=== PATIENT | female | born 1970 | race Hispanic/Latino ===

== ENCOUNTER 2020-08-19 07:49 | Emergency (ER) | payer SELFPAY ==
[2020-08-19] MEDS ORDERED: SODIUM CHLORIDE 0.9% 1000 ML 1,000 ML IV ONE (08:12)
[2020-08-19] MEDS ORDERED: diphenhydrAMINE 50 MG/ML VIAL IV ONE (08:12)
[2020-08-19] MEDS ORDERED: FAMOTIDINE 20 MG/2 ML INJ IV ONE (08:12)
[2020-08-19 10:09] LABS: Hematocrit 43.1 % (30.3-42.9); Hemoglobin 14.2 gm/dl (10.1-14.3); Mean Corpuscular HGB Conc 33 % (30-34); Mean Corpuscular Volume 92 fl (79-97); Platelet Count 370 K/mm3 (140-440); Red Blood Count 4.71 M/mm3 (3.65-5.03); Red Cell Distribution Width 13.5 % (13.2-15.2)
[2020-08-19 10:12] LABS: INR 1.07 (0.87-1.13)
[2020-08-19 10:13] LABS: Partial Thromboplastin Time 26.4 Sec. (24.2-36.6)
--- NOTE | 2020-08-19 10:16 | XRay Report ---
CHEST 1 VIEW 08/19/2020 9:10 AM INDICATION / CLINICAL INFORMATION: Dyspnea. COMPARISON: None available. FINDINGS: SUPPORT DEVICES: None. HEART / MEDIASTINUM: The heart size and pulmonary vasculature are normal. LUNGS / PLEURA: No significant pulmonary or pleural abnormality. No pneumothorax. ADDITIONAL FINDINGS: No significant additional findings. IMPRESSION: No acute findings. Signer Name: Jere Johns MD Signed: 08/19/2020 10:12 AM Workstation Name: [id number]
[2020-08-19 10:25] LABS: Creatine Kinase MB 1.3 ng/mL (0.0-4.0)
[2020-08-19 10:26] LABS: BUN/Creatinine Ratio 11; Blood Urea Nitrogen 11 mg/dL (7-17); Calcium 8.5 mg/dL (8.4-10.2); Hemolysis Index 14
[2020-08-19 10:28] LABS: Alanine Aminotransferase 28 units/L (7-56); Albumin 3.4 g/dL (3.9-5)
[2020-08-19 10:32] LABS: Bilirubin,Direct < 0.2 mg/dL (0-0.2)
--- NOTE | 2020-08-19 11:47 | Emergency Department Report ---
ED General Adult HPI - General Chief complaint: Allergic Reaction Stated complaint: ALLERGIC REACTION/SICK Time Seen by Provider: 08/19/20 08:04 Source: patient, EMS Mode of arrival: Stretcher Limitations: No Limitations - History of Present Illness Initial comments: This is a 49-year-old female that was placed on Levaquin for presumptive diagnosis of bronchitis by a local primary care physician. She states that she had just taken her last dose of a week course prior to this event. The patient got very weak. EMS arrived at the scene and found the patient's blood pressure to be in the 80s. They gave her subcu epinephrine. Patient did not describe acute shortness of breath to me. She did not develop hives. However, on arrival she did have erythroderma. She did associated her problem with the Levaquin that she had taken this morning. Patient denies recent travel, leg pain, chest pain. She has had a nonproductive cough. She does not think she has had fever or chills. Severity scale (0 -10): 0 - Related Data Allergies Allergy/AdvReac Type Severity Reaction Status Date / Time moxifloxacin [From Avelox] Allergy Itching Verified 08/19/20 08:09 ED Review of Systems ROS: Stated complaint: ALLERGIC REACTION/SICK Other details as noted in HPI Constitutional: weakness. denies: chills, fever Eyes: denies: eye pain, eye discharge, vision change ENT: denies: ear pain, throat pain Respiratory: cough. denies: shortness of breath, wheezing Cardiovascular: denies: chest pain, palpitations Endocrine: no symptoms reported Gastrointestinal: denies: abdominal pain, nausea, diarrhea Genitourinary: denies: urgency, dysuria Musculoskeletal: denies: back pain, joint swelling, arthralgia Skin: denies: rash, lesions Neurological: denies: headache, weakness, paresthesias Psychiatric: denies: anxiety, depression Hematological/Lymphatic: denies: easy bleeding, easy bruising ED Past Medical Hx - Past Medical History Previous Medical History?: Yes Hx Asthma: Yes Additional medical history: States previously told sugar is somewhat high - Social History Smoking Status: Never Smoker ED Physical Exam - General Limitations: Physical Limitation General appearance: obese - Head Head exam: Present: atraumatic, normocephalic - Eye Eye exam: Present: normal appearance. Absent: scleral icterus - ENT ENT exam: Present: mucous membranes moist - Neck Neck exam: Present: normal inspection - Respiratory Respiratory exam: Present: normal lung sounds bilaterally. Absent: respiratory distress - Cardiovascular Cardiovascular Exam: Present: regular rate, normal rhythm. Absent: systolic murmur, diastolic murmur, rubs, gallop - GI/Abdominal GI/Abdominal exam: Present: soft, normal bowel sounds. Absent: distended, tenderness, guarding, rebound, rigid - Extremities Exam Extremities exam: Present: normal inspection, normal capillary refill. Absent: pedal edema, joint swelling, calf tenderness - Back Exam Back exam: Present: normal inspection - Neurological Exam Neurological exam: Present: alert, oriented X3, CN II-XII intact. Absent: motor sensory deficit - Psychiatric Psychiatric exam: Present: normal affect, normal mood - Skin Skin exam: Present: warm, dry, intact, erythema (Generalized). Absent: rash ED Course Vital Signs 08/19/20 08/19/20 08/19/20 08:09 08:15 08:17 Pulse Rate 104 H Respiratory 12 18 Rate Blood Pressure Blood Pressure 91/35 [Right] O2 Sat by Pulse 95 95 Oximetry 08/19/20 08/19/20 08/19/20 08:31 08:45 09:01 Pulse Rate 75 85 85 Respiratory 16 18 14 Rate Blood Pressure 91/35 92/50 92/50 Blood Pressure [Right] O2 Sat by Pulse 98 Oximetry 08/19/20 08/19/20 08/19/20 09:15 09:31 09:45 Pulse Rate 86 85 78 Respiratory 13 12 14 Rate Blood Pressure 111/44 120/48 120/48 Blood Pressure [Right] O2 Sat by Pulse Oximetry 08/19/20 08/19/20 08/19/20 10:15 10:31 10:45 Pulse Rate 70 72 78 Respiratory 9 L 13 16 Rate Blood Pressure 94/55 98/42 Blood Pressure [Right] O2 Sat by Pulse Oximetry 08/19/20 08/19/20 08/19/20 11:01 11:15 11:31 Pulse Rate 65 68 72 Respiratory 15 12 12 Rate Blood Pressure 109/49 111/45 111/45 Blood Pressure [Right] O2 Sat by Pulse Oximetry 08/19/20 08/19/20 08/19/20 11:45 12:01 12:15 Pulse Rate 72 83 74 Respiratory 15 13 14 Rate Blood Pressure 116/50 125/57 122/50 Blood Pressure [Right] O2 Sat by Pulse Oximetry - Reevaluation(s) Reevaluation #1: Patient has significant sore persistent lactic acidosis. Her blood pressure on the other hand has stabilized. Her systolic was greater than 125 on my last reassessment diastolic in the 60s. Patient is awake and alert and feels better. She is found to have a D-dimer greater than 400. She is found to have a white count of nearly 20,000. Thus, her differential diagnosis may still include an anaphylactoid reaction. However, she has persistent lactic acidosis and elevated D-dimer. It is uncertain what her "bronchitis symptoms" were from. I am adding PUI testing. I have ordered a CT angiogram. I am holding on antibiotic coverage at this point. We are awaiting a urinalysis. It would appear that patient is meeting various criteria for hospitalization. I have referred the patient to Dr. Becker for further care. He stated he will come and see the patient. 08/19/20 12:06 Reevaluation #2: Patient was given a bolus of IV fluids. Her first lactic acid level was 4.0. About 1 hour later it was 3.6. Will require reassessment. Reevaluation #3: Patient has been referred to the hospitalist for evaluation. She expressed a desire to go home to me initially and then again to the nurse after she had agreed to stay. I was able to get her CTA done which was normal. Her lactic acid level did decrease to 1.6. Patient was encouraged to stay for hospitalist evaluation for further observation. However, she signed out AGAINST MEDICAL ADVICE. She had full mental capacity to do so. She had been prior counseling today as to the risks of leaving and benefits of hospitalization. 08/19/20 14:10 ED Medical Decision Making - Lab Data Result diagrams: 08/19/20 09:33 08/19/20 12:34 Laboratory Results - last 24 hr 08/19/20 08/19/20 08/19/20 09:33 09:33 09:33 WBC 19.8 H RBC 4.71 Hgb 14.2 Hct 43.1 H MCV 92 MCH 30 MCHC 33 RDW 13.5 Plt Count 370 Lymph % (Auto) Application Security Architect Tompkins % (Auto) Application Security Architect Eos % (Auto) Application Security Architect Baso % (Auto) Application Security Architect Lymph # (Auto) Application Security Architect Tompkins # (Auto) Application Security Architect Eos # (Auto) Application Security Architect Baso # (Auto) Application Security Architect Seg Neutrophils % Application Security Architect Seg Neutrophils # Application Security Architect PT 13.7 INR 1.07 APTT 26.4 D-Dimer 415.86 H Sodium 139 Potassium 3.8 Chloride 104.2 Carbon Dioxide 21 L Anion Gap 18 BUN 11 Creatinine 1.0 Estimated GFR 58 BUN/Creatinine Ratio 11 Glucose 157 H Lactic Acid Calcium 8.5 Magnesium 1.70 Total Bilirubin Direct Bilirubin Indirect Bilirubin AST ALT Alkaline Phosphatase Total Creatine Kinase 50 CK-MB (CK-2) 1.3 CK-MB (CK-2) Rel Index 2.6 Troponin T < 0.010 Total Protein Albumin Albumin/Globulin Ratio 08/19/20 08/19/20 08/19/20 09:33 09:33 10:34 WBC RBC Hgb Hct MCV MCH MCHC RDW Plt Count Lymph % (Auto) Tompkins % (Auto) Eos % (Auto) Baso % (Auto) Lymph # (Auto) Tompkins # (Auto) Eos # (Auto) Baso # (Auto) Seg Neutrophils % Seg Neutrophils # PT INR APTT D-Dimer Sodium Potassium Chloride Carbon Dioxide Anion Gap BUN Creatinine Estimated GFR BUN/Creatinine Ratio Glucose Lactic Acid 4.10 H* 3.60 H* Calcium Magnesium Total Bilirubin 0.30 Direct Bilirubin < 0.2 Indirect Bilirubin 0.1 AST 27 ALT 28 Alkaline Phosphatase 85 Total Creatine Kinase CK-MB (CK-2) CK-MB (CK-2) Rel Index Troponin T Total Protein 6.1 L Albumin 3.4 L Albumin/Globulin Ratio 1.3 - EKG Data -: EKG Interpreted by [facility] EKG shows normal: sinus rhythm, axis, intervals, QRS complexes, ST-T waves Rate: normal - EKG Data Interpretation: normal EKG - Radiology Data Radiology results: report reviewed, image reviewed (Chest x-ray no acute process) Chest x-ray no acute process. Critical care attestation.: If time is entered above; I have spent that time in minutes in the direct care of this critically ill patient, excluding procedure time. ED Disposition Clinical Impression: Lactic acidosis, Elevated d-dimer, Person under investigation for COVID-19 Anaphylactoid reaction Qualifiers: Encounter type: initial encounter Qualified Code(s): T78.2XXA - Anaphylactic shock, unspecified, initial encounter Leukocytosis Qualifiers: Leukocytosis type: unspecified Qualified Code(s): D72.829 - Elevated white blood cell count, unspecified Disposition: DC-07 LEFT AGAINST MED ADVICE Is pt being admited?: No Does the pt Need Aspirin: No Condition: Stable Referrals: PRIMARY CARE, [Primary Care Provider] - 3-5 Days Forms: AMA Form Time of Disposition: 14:11
[2020-08-19] MEDS ORDERED: methylPREDNISolone Sod Succinate 125 MG/2 ML INJ IV ONE (12:13)
[2020-08-19 13:15] LABS: Bacteria,Urine 4+ /HPF (Negative); Bilirubin,Urine NEG (Negative); Blood,Urine NEG (Negative); Color,Urine Yellow (Yellow); Hyaline Casts,Urine 4 /LPF; Mucus,Urine FEW /HPF; Protein,Urine <15 mg/dL mg/dL (Negative); Urobilinogen,Urine < 2.0 mg/dL (<2.0)
[2020-08-19 13:19] LABS: Creatine Kinase MB 1.9 ng/mL (0.0-4.0)
[2020-08-19 13:21] LABS: C-Reactive Protein 0.2 mg/dL (0.00-1.30)
--- NOTE | 2020-08-19 13:42 | Cat Scan Report ---
CTA CHEST WITH IV CONTRAST INDICATION: Elevated d-dimer, hypertension. TECHNIQUE: Axial CT images were obtained through the chest after injection of 100 cc Omnipaque 350 IV contrast. 3 plane MIP reconstructions were produced. All CT scans at this location are performed using CT dose reduction for ALARA by means of automated exposure control. COMPARISON: None available. FINDINGS: Pulmonary Arteries: No pulmonary emboli. Lungs: No significant abnormality. Trachea and Bronchi: No significant abnormality. Heart and Pericardium: No significant abnormality. Vasculature: No significant abnormality. Lymphatics: No lymphadenopathy. Additional Findings: None. Upper Abdomen: No acute findings. Skeletal Structures: No acute findings or aggressive bone lesions. IMPRESSION: 1. No CT evidence for pulmonary embolism. 2. No acute findings. Signer Name: Eliceo Howard MD Signed: 08/19/2020 1:38 PM Workstation Name: [id number]
[2020-08-19 14:14] VITALS: BP 118/51
--- NOTE | 2020-08-19 17:13 | Event Note ---
Date: 08/19/20 49-year-old female that was placed on Levaquin for presumptive diagnosis of bronchitis by a local primary care physician. She states that she had just taken her last dose of a week course prior to this event. The patient got very weak. EMS arrived at the scene and found the patient's blood pressure to be in the 80s. They gave her subcu epinephrine. Patient did not describe acute shortness of breath to me. She did not develop hives. However, on arrival she did have erythroderma. She did associated her problem with the Levaquin that she had taken this morning. Patient denies recent travel, leg pain, chest pain. She has had a nonproductive cough. She does not think she has had fever or chills. Severity scale (0 -10): 0 - Related Data Allergies Allergy/AdvReac Type Severity Reaction Status Date / Time moxifloxacin [From Avelox] Allergy Itching Verified 08/19/20 08:09 ED Review of Systems ROS: Stated complaint: ALLERGIC REACTION/SICK Other details as noted in HPI Constitutional: weakness. denies: chills, fever Eyes: denies: eye pain, eye discharge, vision change ENT: denies: ear pain, throat pain Respiratory: cough. denies: shortness of breath, wheezing Cardiovascular: denies: chest pain, palpitations Endocrine: no symptoms reported Gastrointestinal: denies: abdominal pain, nausea, diarrhea Genitourinary: denies: urgency, dysuria Musculoskeletal: denies: back pain, joint swelling, arthralgia Skin: denies: rash, lesions Neurological: denies: headache, weakness, paresthesias Psychiatric: denies: anxiety, depression Hematological/Lymphatic: denies: easy bleeding, easy bruising ED Past Medical Hx - Past Medical History Previous Medical History?: Yes Hx Asthma: Yes Additional medical history: States previously told sugar is somewhat high - Social History Smoking Status: Never Smoker ED Physical Exam - General Limitations: Physical Limitation General appearance: obese - Head Head exam: Present: atraumatic, normocephalic - Eye Eye exam: Present: normal appearance. Absent: scleral icterus - ENT ENT exam: Present: mucous membranes moist - Neck Neck exam: Present: normal inspection - Respiratory Respiratory exam: Present: normal lung sounds bilaterally. Absent: respiratory distress - Cardiovascular Cardiovascular Exam: Present: regular rate, normal rhythm. Absent: systolic murmur, diastolic murmur, rubs, gallop - GI/Abdominal GI/Abdominal exam: Present: soft, normal bowel sounds. Absent: distended, tenderness, guarding, rebound, rigid - Extremities Exam Extremities exam: Present: normal inspection, normal capillary refill. Absent: pedal edema, joint swelling, calf tenderness - Back Exam Back exam: Present: normal inspection - Neurological Exam Neurological exam: Present: alert, oriented X3, CN II-XII intact. Absent: motor sensory deficit - Psychiatric Psychiatric exam: Present: normal affect, normal mood - Skin Skin exam: Present: warm, dry, intact, erythema (Generalized). Absent: rash ED Course Vital Signs 08/19/20 08/19/20 08/19/20 08:09 08:15 08:17 Pulse Rate 104 H Respiratory 12 18 Rate Blood Pressure Blood Pressure 91/35 [Right] O2 Sat by Pulse 95 95 Oximetry 08/19/20 08/19/20 08/19/20 08:31 08:45 09:01 Pulse Rate 75 85 85 Respiratory 16 18 14 Rate Blood Pressure 91/35 92/50 92/50 Blood Pressure [Right] O2 Sat by Pulse 98 Oximetry 08/19/20 08/19/20 08/19/20 09:15 09:31 09:45 Pulse Rate 86 85 78 Respiratory 13 12 14 Rate Blood Pressure 111/44 120/48 120/48 Blood Pressure [Right] O2 Sat by Pulse Oximetry 08/19/20 08/19/20 08/19/20 10:15 10:31 10:45 Pulse Rate 70 72 78 Respiratory 9 L 13 16 Rate Blood Pressure 94/55 98/42 Blood Pressure [Right] O2 Sat by Pulse Oximetry 08/19/20 08/19/20 08/19/20 11:01 11:15 11:31 Pulse Rate 65 68 72 Respiratory 15 12 12 Rate Blood Pressure 109/49 111/45 111/45 Blood Pressure [Right] O2 Sat by Pulse Oximetry 08/19/20 08/19/20 08/19/20 11:45 12:01 12:15 Pulse Rate 72 83 74 Respiratory 15 13 14 Rate Blood Pressure 116/50 125/57 122/50 Blood Pressure [Right] O2 Sat by Pulse Oximetry - Reevaluation(s) Reevaluation #1: Patient has significant sore persistent lactic acidosis. Her blood pressure on the other hand has stabilized. Her systolic was greater than 125 on my last reassessment diastolic in the 60s. Patient is awake and alert and feels better. She is found to have a D-dimer greater than 400. She is found to have a white count of nearly 20,000. Thus, her differential diagnosis may still include an anaphylactoid reaction. However, she has persistent lactic acidosis and elevated D-dimer. It is uncertain what her "bronchitis symptoms" were from. I am adding PUI testing. I have ordered a CT angiogram. I am holding on antibiotic coverage at this point. We are awaiting a urinalysis. It would appear that patient is meeting various criteria for hospitalization. I have referred the patient to Dr. Becker for further care. He stated he will come and see the patient. 08/19/20 12:06 Reevaluation #2: Patient was given a bolus of IV fluids. Her first lactic acid level was 4.0. About 1 hour later it was 3.6. Will require reassessment.
--- NOTE | 2020-08-21 10:31 | Electrocardiograph Report ---
[facility] Test Date: 2020-08-19 Test Time: 08:28:41 Pat Name: MARIANNE RAMOS Department: Room: Gender: F Electric Motor Assembler: ANGIE : 1970 Requested By: VL MIDDLETON Order Number: [id number] Reading MD: Jg Teague Measurements Intervals [place] Rate: 74 P: 57 MT: 191 QRS: 53 QRSD: 108 T: 49 QT: 432 QTc: 479 Interpretive Statements Sinus rhythm No previous ECG available for comparison Electronically Signed On 08-21-2020 7:31:39 PDT by Jg Teague
== END 2020-08-19 14:14 | disposition left against medical advice (07) ==
LOC: ED 07:49
DX: E87.2 Acidosis (principal); T78.2XXA Anaphylactic shock, unspecified, initial encounter; D72.829 Elevated white blood cell count, unspecified; R79.89 Other specified abnormal findings of blood chemistry; J45.909 Unspecified asthma, uncomplicated; Z79.899 Other long term (current) drug therapy; Z88.8 Allergy status to other drugs, medicaments and biological substances
CPT/HCPCS: 36415; 71045; 71275; 80048; 80076; 81001; 82140; 82550; 82553; 82728; 82947; 83615; 83735; 84145; 84484; 85025; 85379; 85610; 85730; 86140; 87040; 87086; 93005; 96361; 96374; 96375; 99285; J1200; J2930; J7030; Q9967

== ENCOUNTER 2021-05-21 16:46 | Emergency (ER) | payer OTHER ==
[2021-05-21 16:51] VITALS: BP 116/54
[2021-05-21] MEDS ORDERED: SODIUM CHLORIDE 0.9% 1000 ML 1,000 ML IV ONE (17:13)
--- NOTE | 2021-05-21 17:14 | Emergency Department Report ---
- General Chief Complaint: Upper Respiratory Infection Stated Complaint: FLU LIKE SYMPTOMS Source: patient Mode of arrival: Ambulatory Limitations: No Limitations - History of Present Illness Initial Comments: Patient is a 50-year-old female with no significant past medical history here with complaints of flu like symptoms. Patient reports that she has had symptoms for approximately 1 week. She notes that she has had fever cough headache since last Sunday. She was tested for flu and Covid and states that that was negative on Sunday. She states that she feels that she might be dehydrated secondary to not taking in lots of food and drink. She notes she has not been vaccinated for Covid nor for the flu. She notes she mainly notes upper respiratory congestion. She is also had some cold sweats. She denies any chest pain or shortness of breath. - Related Data Allergies Allergy/AdvReac Type Severity Reaction Status Date / Time moxifloxacin [From Avelox] Allergy Itching Verified 08/19/20 08:09 ED Review of Systems ROS: Stated complaint: FLU LIKE SYMPTOMS Other details as noted in HPI Constitutional: chills, fever Eyes: denies: eye pain ENT: congestion Respiratory: cough. denies: shortness of breath Cardiovascular: as per HPI Endocrine: no symptoms reported Gastrointestinal: denies: abdominal pain, nausea, vomiting Genitourinary: denies: urgency, dysuria, discharge Musculoskeletal: denies: back pain, joint swelling, arthralgia Skin: denies: rash Neurological: headache Psychiatric: denies: anxiety, depression Hematological/Lymphatic: denies: easy bleeding ED Past Medical Hx - Past Medical History Hx Asthma: Yes Additional medical history: States previously told sugar is somewhat high - Social History Smoking Status: Never Smoker ED Physical Exam - General Limitations: No Limitations General appearance: alert, in no apparent distress - Head Head exam: Present: atraumatic, normocephalic - Eye Eye exam: Present: normal appearance - ENT ENT exam: Present: normal exam, mucous membranes moist - Neck Neck exam: Present: normal inspection - Respiratory Respiratory exam: Present: normal lung sounds bilaterally. Absent: respiratory distress - Cardiovascular Cardiovascular Exam: Present: regular rate, normal rhythm. Absent: systolic murmur, diastolic murmur, rubs, gallop - GI/Abdominal GI/Abdominal exam: Present: soft, normal bowel sounds - Rectal Rectal exam: Present: deferred - Extremities Exam Extremities exam: Present: normal inspection - Back Exam Back exam: Present: normal inspection - Neurological Exam Neurological exam: Present: alert, oriented X3 - Psychiatric Psychiatric exam: Present: normal affect, normal mood - Skin Skin exam: Present: warm, dry, intact, normal color. Absent: rash ED Course Vital Signs 05/21/21 16:49 Temperature 98.9 F Pulse Rate 92 H Blood Pressure 116/54 O2 Sat by Pulse 94 Oximetry - Reevaluation(s) Reevaluation #1: 05/21/21 19:44 Patient apparently eloped. ED Medical Decision Making - Lab Data Result diagrams: 05/21/21 17:12 05/21/21 17:12 - Radiology Data Radiology results: report reviewed, image reviewed - Medical Decision Making 50 yo F who presents to the ED with complaint of fevers, chills, headache concerning for viral illness. She denies CP or SOB. Plan for cxr, basic labs, and flu testing. Unable to offer covid testing as patient likely to be DC. Will re-eval after imaging and labs. Critical care attestation.: If time is entered above; I have spent that time in minutes in the direct care of this critically ill patient, excluding procedure time. ED Disposition Clinical Impression: Viral illness Disposition: 07 LEFT AWOL/ELOPED Is pt being admited?: No Does the pt Need Aspirin: No Condition: Stable
--- NOTE | 2021-05-21 17:59 | XRay Report ---
CHEST 2 VIEWS INDICATION / CLINICAL INFORMATION: cough. COMPARISON: 08/19/2020 FINDINGS: SUPPORT DEVICES: None. HEART / MEDIASTINUM: No significant abnormality. LUNGS / PLEURA: No significant pulmonary or pleural abnormality. No pneumothorax. ADDITIONAL FINDINGS: No significant additional findings. IMPRESSION: 1. No acute findings. Signer Name: Eliceo Howard MD Signed: 05/21/2021 5:54 PM Workstation Name: [id number]
[2021-05-21 18:05] LABS: Basophils % (Auto) 0.8 % (0.0-1.8); Eosinophils % (Auto) 0.2 % (0.0-4.3); Hematocrit 45.8 % (30.3-42.9); Hemoglobin 14.7 gm/dl (10.1-14.3); Lymphocytes # (Auto) 1.7 K/mm3 (1.2-5.4); Lymphocytes % (Auto) 41.5 % (13.4-35.0); Mean Corpuscular HGB Conc 32 % (30-34); Mean Corpuscular Volume 88 fl (79-97); Monocytes # (Auto) 0.6 K/mm3 (0.0-0.8); Platelet Count 304 K/mm3 (140-440); Red Blood Count 5.18 M/mm3 (3.65-5.03); Red Cell Distribution Width 13.7 % (13.2-15.2)
[2021-05-21 18:26] LABS: Alanine Aminotransferase 45 units/L (7-56); Albumin 4.2 g/dL (3.9-5); BUN/Creatinine Ratio 16; Blood Urea Nitrogen 14 mg/dL (7-17); Hemolysis Index 3
== END 2021-05-21 20:41 | disposition left against medical advice (07) ==
LOC: ED 16:46
DX: B34.9 Viral infection, unspecified (principal); J45.909 Unspecified asthma, uncomplicated; Z88.1 Allergy status to other antibiotic agents
CPT/HCPCS: 36415; 71046; 80053; 85025; 87400; 96360; 99283; J7030; Q0162